=== PATIENT | female | born 1955 | race Caucasian/White ===

== ENCOUNTER 2016-12-06 14:55 | Emergency (ER) | payer OTHER ==
--- NOTE | 2016-12-06 15:13 | EDPHY ---
HPI/HX/ROS/PE/MDM Narrative: CHIEF COMPLAINT: Allergic reaction HPI: This patient is a 61 year old female arriving from home complaining of a possible allergic reaction to Azo onset 45 minutes ago. Earlier this morning, she went on an 8 mile hike near [facility], and states she stayed well hydrated. She felt as if she were developing UTI symptoms, and bought Azo over the counter for symptom relief. She has never taken this medication before. Shortly after taking it, she developed bright red skin, shakiness, dizziness, and nausea. She had one episode of vomiting. She had also taken a dose of Macrobid, which she has for UTI prophylaxis. She took Bactrim Wednesday evening for prophylaxis as well. No fever, itching, hives, respiratory distress, or other associated symptoms. She states she has idiopathic chronic urticaria and has been taking Loratadine for the last year, so she is unsure if she would otherwise have hives currently. REVIEW OF SYSTEMS: Aside from elements discussed in the HPI, a comprehensive 10-point review of systems was reviewed and is negative. PMH: Idiopathic chronic urticaria (loratadine). SOCIAL HISTORY: Significant other at bedside. Lives in [place]. Works as a financial management. PHYSICAL EXAM: General: Tremulous. Patient is alert, in no acute distress. ENT:Eyes are normal to inspection. ENT inspection normal. Neck: Normal inspection. Full range of motion. Respiratory:No respiratory distress. Breath sounds normal bilaterally. Cardiovascular: Regular rate and rhythm. Strong peripheral pulses. Normal cap refill. Abdomen:The abdomen is nontender to palpation. There are no peritoneal signs. There are normal bowel sounds. Back: Normal to inspection. No tenderness to palpation. Skin: Flushed. No cyanosis. No rash. Warm and dry. Extremities: Normal appearance. Full range of motion. Neuro: Oriented x3. Normal motor function. Normal sensory function. Portions of this note were transcribed by an ED scribe. I personally performed the history, physical exam, and medical decision making; and confirm the accuracy of the information in the transcribed note. ED Course: Patient has had 50mg IV Benadryl and 125mg IV Solu-Medrol prior to arrival. Plan for labs including CBC, BMP, Troponin, and urinalysis. Plan to administer 4mg IV Zofran, 0.5 mg IV Ativan for symptom relief. 16:30 Reassessed patient. She is now asymptomatic. Normal vitals. UA positive for urinary tract infection. Plan to administer 1gm IV Ceftriaxone. Plan to discharge home in good condition with prescription for Keflex. Follow up and return precautions discussed. The patient is comfortable with this plan. MDM: This patient presents with signs and symptoms of what sounds like an adverse reaction to her first use of Azo. Her presentation is complicated by underlying idiopathic urticaria and use of two different antibiotics in the past few days, as well as long hiking trip earlier today. I think anaphylaxis is unlikely as there are no current hives, no airway issue, no pruritus, and her symptoms match commonly listed adverse effects in drug monograph. The patient was treated with meds in route by EMS and responded well to IVNS and zofran here in the ED. Her UA confirms UTI. Given presentation, I will err on the side of caution with an IV dose of ceftriaxone followed by keflex since her use of bactrim the other day did not prevent this current UTI. The patient has no abdominal pain or tenderness. Her vitals are normal at the time of discharge. - Data Points Laboratory Results: Laboratory Results 12/06/16 15:00 12/06/16 15:00 12/06/16 12/06/16 12/06/16 16:10 15:00 15:00 WBC 15.17 10^3/uL H 10^3/uL (3.80-9.50) RBC 5.14 10^6/uL 10^6/uL (4.18-5.33) Hgb 14.9 g/dL g/dL (12.6-16.3) Hct 43.5 % % (38.0-47.0) MCV 84.6 fL fL (81.5-99.8) MCH 29.0 pg pg (27.9-34.1) MCHC 34.3 g/dL g/dL (32.4-36.7) RDW 12.4 % % (11.5-15.2) Plt Count 264 10^3/uL 10^3/uL (150-400) MPV 9.6 fL fL (8.7-11.7) Neut % (Auto) 64.2 % % (39.3-74.2) Lymph % (Auto) 30.2 % % (15.0-45.0) Placer % (Auto) 4.6 % % (4.5-13.0) Eos % (Auto) 0.3 % L % (0.6-7.6) Baso % (Auto) 0.4 % % (0.3-1.7) Nucleat RBC Rel Count 0.0 % % (0.0-0.2) Absolute Neuts (auto) 9.74 10^3/uL H 10^3/uL (1.70-6.50) Absolute Lymphs (auto) 4.58 10^3/uL H 10^3/uL (1.00-3.00) Absolute Monos (auto) 0.70 10^3/uL 10^3/uL (0.30-0.80) Absolute Eos (auto) 0.05 10^3/uL 10^3/uL (0.03-0.40) Absolute Basos (auto) 0.06 10^3/uL 10^3/uL (0.02-0.10) Absolute Nucleated RBC 0.00 10^3/uL 10^3/uL (0-0.01) Immature Gran % 0.3 % % (0.0-1.1) Immature Gran # 0.04 10^3/uL 10^3/uL (0.00-0.10) Sodium 135 mEq/L mEq/L (134-144) Potassium 4.1 mEq/L mEq/L (3.5-5.2) Chloride 103 mEq/L mEq/L (97-110) Carbon Dioxide 18 mEq/l L mEq/l (22-31) Anion Gap 14 mEq/L mEq/L (8-16) BUN 25 mg/dL H mg/dL (7-23) Creatinine 1.4 mg/dL H mg/dL (0.6-1.0) Estimated GFR 38 Glucose 146 mg/dL H mg/dL (70-100) Calcium 9.8 mg/dL mg/dL (8.5-10.4) Troponin I < 0.012 ng/mL ng/mL (0-0.034) Urine Color DELFINA Urine Appearance MODERATELY TURBID Urine pH 7.0 (5.0-7.5) Ur Specific [place] 1.021 (1.002-1.030) Urine Protein 2+ H (NEGATIVE) Urine Ketones TRACE H (NEGATIVE) Urine Blood 3+ H (NEGATIVE) Urine Nitrate POSITIVE H (NEGATIVE) Urine Bilirubin NEGATIVE (NEGATIVE) Urine Urobilinogen 4.0 EU H EU (0.2-1.0) Ur Leukocyte Esterase 2+ H (NEGATIVE) Urine RBC 50-182 /hpf H /hpf (0-3) Urine WBC 50-182 /hpf H /hpf (0-3) Ur Epithelial Cells TRACE /lpf /lpf (NONE-1+) Urine Bacteria TRACE /hpf H /hpf (NONE SEEN) Hyaline Casts 25-50 /lpf H /lpf (0-1) Urine Mucus 1+ /lpf /lpf (NONE-1+) Urine Glucose NEGATIVE (NEGATIVE) Medications Given: Discontinued Medications Sodium Chloride (Ns) 1,000 mls @ 0 mls/hr IV ONCE ONE PRN Reason: Wide Open Stop: 12/06/16 15:19 Last Admin: 12/06/16 15:19 Dose: 1,000 mls Ceftriaxone Sodium/Dextrose (Rocephin 1 Gm (Premix)) 50 mls @ 100 mls/hr IV EDNOW ONE PRN Reason: Protocol Stop: 12/06/16 17:05 Last Admin: 12/06/16 16:44 Dose: 50 mls Lorazepam (Ativan Injection) 0.5 mg IVP EDNOW ONE Stop: 12/06/16 15:44 Last Admin: 12/06/16 15:46 Dose: 0.5 mg Ondansetron HCl (Zofran) 4 mg IVP EDNOW ONE Stop: 12/06/16 15:16 Last Admin: 12/06/16 15:18 Dose: 4 mg General Time Seen by Provider: 12/06/16 15:06 Initial Vital Signs: Initial Vital Signs Temperature (C) 36.6 C 12/06/16 15:16 Heart Rate 96 12/06/16 15:16 Respiratory Rate 18 12/06/16 15:16 Blood Pressure 132/120 H 12/06/16 15:16 O2 Sat (%) 98 12/06/16 15:16 O2 Delivery Mode Room Air Allergies/Adverse Reactions: phenazopyridine [From Azo] Allergy (Verified 12/06/16 15:21) Home Medications: Medication Instructions Recorded Cephalexin [Keflex] 500 mg PO TID #21 cap 12/06/16 predniSONE 60 mg PO DAILY #9 tab 12/06/16 Departure - Departure Disposition: Home, Routine, Self-Care Clinical Impression: Urinary tract infection, Adverse reaction to [id number] medication Condition: Good Instructions: Urinary Tract Infection in Women (ED), Adverse Drug Reaction (ED) Additional Instructions: 1. Take your Keflex as prescribed to treat your urinary tract infection. 2. Follow-up with your primary doctor next week. 3. Return to the Emergency Department for fever, worsening pain, flank pain or failure to improve within 72 hours. It is possible that the bacteria causing your infection is resistant to the antibiotic we've placed you on. We have sent urine for culture, if this comes back with a resistant bacteria, we will call you at the number you provided to us. 4. Return to the Emergency Department for shortness of breath, difficulty swallowing, difficulty breathing, worsening of rash, or other worsening of condition. Referrals: Phoebe Carlson MD [Medical Doctor] - As per Instructions Prescriptions: Cephalexin [Keflex] 500 mg PO TID #21 cap Report Scribed for: Dajuan Vila Report Scribed by: Kathryn Hair Date of Report: 12/06/16 Time of Report: 15:08
[2016-12-06] MEDS ORDERED: ONDANSETRON 4 MG/2 ML VIAL ONE (15:14)
[2016-12-06] MEDS ORDERED: ONDANSETRON 4 MG/2 ML VIAL IVP ONE (15:15)
[2016-12-06 15:18] VITALS: TEMP 97.9
[2016-12-06] MEDS ORDERED: NS 1,000 ML IV ONE (15:18)
[2016-12-06 15:21] LABS: % IMMATURE GRANULYOCYTES 0.3 % (0.0-1.1); ABSOLUTE IMMATURE GRANULOCYTES 0.04 10^3/uL (0.00-0.10); ADD DIFF? NO; ADD MORPH? NO; ADD SCAN? NO; ATYPICAL LYMPHOCYTE FLAG 0 (0-99); FRAGMENT RBC FLAG 0 (0-99); HEMATOCRIT 43.5 % (38.0-47.0); HEMOGLOBIN 14.9 g/dL (12.6-16.3); LEFT SHIFT FLG 0 (0-99); LIPEMIA HEMOLYSIS FLAG 90 (0-99); MEAN CELL HEMOGLOBIN CONCENTR. 34.3 g/dL (32.4-36.7); MEAN CELL VOLUME 84.6 fL (81.5-99.8); MEAN PLATELET VOLUME 9.6 fL (8.7-11.7); PLATELET CLUMPS FLAG 10 (0-99); PLATELET COUNT 264 10^3/uL (150-400); RED BLOOD CELL COUNT 5.14 10^6/uL (4.18-5.33); RED CELL DISTRIBUTION WIDTH 12.4 % (11.5-15.2)
[2016-12-06 15:25] LABS: ANION GAP 14 mEq/L (8-16); CALCIUM 9.8 mg/dL (8.5-10.4); CARBON DIOXIDE 18 mEq/l (22-31); CHLORIDE 103 mEq/L (97-110); CREATININE 1.4 mg/dL (0.6-1.0); GLOMERULAR FILTRATION RATE 38; GLUCOSE 146 mg/dL (70-100); POTASSIUM 4.1 mEq/L (3.5-5.2); SODIUM 135 mEq/L (134-144)
[2016-12-06 15:37] LABS: TROPONIN I < 0.012 ng/mL (0-0.034)
[2016-12-06] MEDS ORDERED: LORazepam 2 MG/ML INJ IVP ONE (15:43)
[2016-12-06 16:30] LABS: COLOR AMBER; LEUKOCYTE ESTERASE,URINE 2+ (NEGATIVE); NITRITE,URINE POSITIVE (NEGATIVE)
[2016-12-06 16:33] LABS: BACTERIA TRACE /hpf (NONE SEEN); HYALINE CASTS 25-50 /lpf (0-1); MUCUS 1+ /lpf (NONE-1+); RBC,URINE 50-182 /hpf (0-3); WBC,URINE 50-182 /hpf (0-3)
[2016-12-06 17:16] VITALS: BP 127/73; PULSE 73; RESP 16; O2SAT 94
== END 2016-12-06 17:27 | disposition home or self-care (01) ==
LOC: EDUNIT#
DX: N39.0 Urinary tract infection, site not specified (principal); B96.89 Other specified bacterial agents as the cause of diseases classified elsewhere; T39.8X5A Adverse effect of other nonopioid analgesics and antipyretics, not elsewhere classified, initial encounter; R42 Dizziness and giddiness
CPT/HCPCS: 96365; J0696; J2060; J2405

== ENCOUNTER 2016-12-06 20:32 | Emergency (ER) | payer OTHER ==
[2016-12-06 20:42] VITALS: BP 107/74; PULSE 85; RESP 16; TEMP 97.7; O2SAT 93
[2016-12-06] MEDS ORDERED: predniSONE 20 MG TAB PO ONE (20:53)
--- NOTE | 2016-12-06 20:53 | EDPHY ---
HPI/HX/ROS/PE/MDM Narrative: CHIEF COMPLAINT: Hives on neck and back HPI: This patient is a 61 year old female returning with further concerns related to an adverse medication reaction sustained this afternoon. She noted hives on her neck and back, beginning around 30 minutes ago. She has also noticed mild urticaria along her bra line. She was discharged in good condition this afternoon following resolution of her earlier symptoms, including flushed skin, shakiness, dizziness, and nausea. She feels slightly dizzy now, but believes this is related to administration of Benadryl and Ativan. She also took her first dose of Keflex, prescribed for a urinary tract infection. She denies generalized itchiness, difficulty breathing, or difficulty swallowing. No fever or other associated symptoms. REVIEW OF SYSTEMS: Aside from elements discussed in the HPI, a comprehensive 10-point review of systems was reviewed and is negative. PMH/SOCIAL HISTORY: See prior chart PHYSICAL EXAM: General:Patient is alert, in no acute distress. ENT:Eyes are normal to inspection. ENT inspection normal. Neck: Normal inspection. Full range of motion. Respiratory:No respiratory distress. Breath sounds normal bilaterally. Cardiovascular: Regular rate and rhythm. Strong peripheral pulses. Normal cap refill. Abdomen:The abdomen is nontender to palpation. There are no peritoneal signs. There are normal bowel sounds. Back: Normal to inspection. No tenderness to palpation. Skin: Mild urticaria and erythema to posterior neck spreading to sides. Mild streaking urticaria at bra line. Normal color. Warm and dry. Extremities: Normal appearance. Full range of motion. Neuro: Oriented x3. Normal motor function. Normal sensory function. Portions of this note were transcribed by an ED scribe. I personally performed the history, physical exam, and medical decision making; and confirm the accuracy of the information in the transcribed note. ED Course: Patient shows no signs of generalized allergic reaction. Plan to administer 60mg PO Prednisone for symptom relief. Plan to discharge in good condition with prescription for Prednisone. Follow up and return precautions discussed. The patient is comfortable with this plan. MDM: This patient returns after recent discharge. She states her symptoms are consistent with prior idiopathic urticaria. Please see earlier chart for discussion of possible etiologies. I think given lack of systemic involvement or airway issue, this is less likely anaphylaxis. The patient did not show any reaction to IV ceftriaxone which was several hours ago. We discussed possible treatment options and patient elects to go with a single dose of prednisone here and follow-up with her PCP tomorrow. We discussed strict return precautions. General Initial Vital Signs: Initial Vital Signs Temperature (C) 36.5 C 12/06/16 20:38 Heart Rate 85 12/06/16 20:38 Respiratory Rate 16 12/06/16 20:38 Blood Pressure 107/74 12/06/16 20:38 O2 Sat (%) 93 12/06/16 20:38 O2 Delivery Mode Room Air Allergies/Adverse Reactions: phenazopyridine [From Azo] Allergy (Verified 12/06/16 15:21) Home Medications: Medication Instructions Recorded Cephalexin [Keflex] 500 mg PO TID #21 cap 12/06/16 predniSONE 60 mg PO DAILY #9 tab 12/06/16 Departure - Departure Disposition: Home, Routine, Self-Care Clinical Impression: Urticaria, Adverse reaction to [id number] medication Condition: Good Instructions: Urticaria (ED), Adverse Drug Reaction (ED), General Allergic Reaction (ED) Additional Instructions: 1. Take your Prednisone for symptom relief as prescribed. You may take this as needed based on your symptoms as we discussed. 2. Follow up with your primary care physician this week for continued management of your symptoms. 3. Return to the Emergency Department for difficulty swallowing, difficulty breathing, worsening of rash, or other worsening of condition. Referrals: Phoebe Carlson MD [Medical Doctor] - As per Instructions Prescriptions: predniSONE 60 mg PO DAILY #9 tab Report Scribed for: Dajuan Vila Report Scribed by: Kathryn Hair Date of Report: 12/06/16 Time of Report: 20:57
== END 2016-12-06 21:30 | disposition home or self-care (01) ==
DX: L50.9 Urticaria, unspecified (principal); T45.0X5A Adverse effect of antiallergic and antiemetic drugs, initial encounter